=== PATIENT | male | born 1955 | race Caucasian/White ===

== ENCOUNTER 2016-08-15 05:11 | Inpatient (IN) | payer OTHER, MEDICARE ==
[2016-08-03 15:15] LABS: HEMATOCRIT 38.6 % (42.0-52.0); HEMOGLOBIN 12.4 gm/dL (14.0-18.0); MCH 25.4 pg (26.0-34.0); MCHC 32.2 g/dL (28.0-37.0); MCV 78.9 fL (80.0-100.0); RBC 4.89 mil/uL (4.50-6.00); RDW 15.5 % (10.5-14.5); WBC 8.4 thou/uL (4.0-11.0)
[2016-08-03 15:27] LABS: CALCIUM 8.7 mg/dL (8.5-10.1); CREATININE 1.3 mg/dL (0.6-1.3); POTASSIUM 4.4 mmol/L (3.5-5.1)
[2016-08-03 15:30] LABS: INR 3.5; PROTIME 36.5 Seconds (9.3-11.4)
[2016-08-04 09:18] LABS: URINE BILIRUBIN NEGATIVE (Negative); URINE BLOOD NEGATIVE (Negative); URINE COLOR YELLOW; URINE GLUCOSE-RANDOM* NEGATIVE (Negative); URINE KETONES NEGATIVE (Negative); URINE LEUKOCYTES-REFLEX NEGATIVE (Negative); URINE PROTEIN (DIPSTICK) NEGATIVE (Negative); URINE UROBILINOGEN 0.2 E.U./dl (0.2-1.0)
[~2016-08-15] VITALS: Ht 175.3 cm; Wt 89.8 kg
[2016-08-15] VITALS (11 sets, daily range): BP systolic 103–173; BP diastolic 66–111
--- NOTE | ~2016-08-15 | O ---
[facility] [place] [address] OPERATIVE REPORT Name: JOSH HARMON Room #: 539-P [facility] IN M.R.#: [id number] Admission: 08/15/16 Attend Phys: Monty Hernández MD Discharge: Date of : 59 Report #: [id number] THIS REPORT FOR: //name// CC: Charlie Hernández DATE OF SERVICE: 08/15/2016 PREOPERATIVE DIAGNOSES: End-stage degenerative arthritis, left knee with some mild flexion contracture and moderate valgus malalignment. POSTOPERATIVE DIAGNOSES: End-stage degenerative arthritis, left knee with some mild flexion contracture and moderate valgus malalignment. PROCEDURE: Left total knee arthroplasty. SURGEON: Monty Hernández MD. INDICATIONS: This 60-year-old gentleman is somewhat frail and has a number of general medical and psychological problems. He is on chronic pain medication. He remains moderately active and independent but is having difficulty given progressive bilateral knee pain. He has moderate valgus malalignment on the left side and mild varus malalignment on the right. Both knees are uncomfortable and demonstrated mild flexion contracture. We have discussed treatment options, and the potential risks as well as benefits given his other comorbidities. He and his family understand well and wished to proceed at this point with left total knee arthroplasty. DESCRIPTION OF PROCEDURE: The patient was taken to the operating room and placed under general anesthesia. A left femoral nerve block was also applied. The left knee and leg were meticulously prepped and draped. An anterior longitudinal skin incision was made and carried through the medial retinaculum. The patella was reflected laterally. Moderate degenerative change in all 3 compartments was noted. The AWID knee system was utilized. Intramedullary guides were used on both the femur and the tibia. The femur was noted to be in moderate valgus position, and this was corrected by placing the distal cut at about 5 degrees of valgus. The femur seemed best suited for a size 4 femoral component. The tibia was cut perpendicular to the long axis of the bone, and also seemed most appropriately sized for a size 4 tibial component. The patellar surface was resected and a size 38 mm patellar button fit nicely, appropriate anchor holes were created. A trial reduction was performed and the knee seemed best suited for a 12.5 mm polyethylene tibial insert, the patella is mildly unstable and needed some support for good tracking. This was improved with a limited lateral retinacular release, I felt positioning of the patellar component and rotation alignment of the femoral and tibial component seemed to be optimal. I felt patellar stabilization with a good closure of the medial [address] [id number] OPERATIVE REPORT Name: JOSH HARMON Room #: 539-P [facility] IN M.R.#: [id number] Admission: 08/15/16 Attend Phys: Monty Hernández MD Discharge: Date of : 59 Report #: [id number] retinaculum would probably be satisfactory. The intramedullary canals were blocked on both the femoral and tibial sides with a bone block. The surfaces were thoroughly irrigated and dried. Methyl methacrylate cement was mixed and injected into the porous surface of the proximal tibia. The DePuy PFC size 4 tibial component was then impacted into position in appropriate alignment and rotation. It seated nicely and appeared to be secure. A size 4 left femoral component was impacted on the distal femur. It also seated nicely and appeared to be secure. A 12.5 mm polyethylene insert was snapped into place. This seated nicely. The size 38 mm patellar button was cemented into place using appropriate anchor holes and secured with a patellar clamp. As the cement hardened, the knee was placed into full extension, and gentle pressure applied. As the tibial cement hardened, once the cement was fully cured, alignment, range of motion, and stability were assessed, and felt to be quite satisfactory. The patella seemed to track nicely and appeared to be reasonably secure. I felt this would do nicely with the addition of a good medial retinacular were repair. The tourniquet was deflated after a total tourniquet time of 44 minutes. The wound was copiously irrigated. Good hemostasis was established. A single Hemovac was left in the wound, exiting through a separate stab incision. The fascia was then closed in a careful and complete fashion using multiple #1 Vicryl sutures. This did result in a very satisfactory stability of the patella, which seemed to track nicely with no further evidence of lateral subluxation. The subcutaneous tissues were then closed with 0 Monocryl. The skin was closed with skin cholo. A sterile dressing was applied. The patient was awakened and returned to the recovery room in good condition. <ELECTRONICALLY SIGNED> By: Monty Hernández MD 08/16/16 0743 [id number] Monty Hernández MD /nt
--- NOTE | ~2016-08-15 | D ---
[facility] [place] [address] [address] DISCHARGE SUMMARY Name: JOSH HARMON Room #: 539-P [facility] IN M.R.#: [id number] Admission: 08/15/16 Attend Phys: Monty Hernández MD Discharge: Date of : 59 Report #: [id number] THIS REPORT FOR: //name// CC: Charlie Hernández DATE OF SERVICE: 08/19/2016 FINAL DIAGNOSES: 1. Severe end-stage degenerative arthritis, left knee. 2. Chronic pain syndrome related to generalized degenerative spondylosis, radiculopathy and chronic pain syndrome. OPERATION AND PROCEDURES: Left total knee arthroplasty. HISTORY OF PRESENT ILLNESS: This frail 60-year-old gentleman has a number of chronic medical problems and severe chronic pain syndrome requiring extensive chronic analgesic medications. He also has progressive degenerative arthritis in both knees. We have elected to go ahead with left total knee arthroplasty. HOSPITAL COURSE: The patient was admitted and taken to the operating room on August 15. He underwent left total knee arthroplasty, which he tolerated nicely. He has made satisfactory progress with postoperative therapy, although with some difficulty given his frail general state and his chronic generalized discomfort. He tolerated a femoral nerve block nicely and also had IV and oral analgesics. Dosing is rather significant given his chronic narcotic regimen, which includes oxycodone in the range of 120-160 mg daily. He was able to resume a regular diet. He made good progress with therapy and seems to be reasonably safe and functionally independent. He seems ready for discharge home on August 19. DISCHARGE MEDICATIONS: Include Dexilant 60 mg daily, Xanax 2 mg at bedtime, Depakote 250 mg 2 tablets twice daily, oxycodone 30 mg q. 6 hours p.r.n. for pain, Lipitor 20 mg daily, Coreg 6.5 mg b.i.d., gabapentin 300 mg daily, Desyrel 150 mg daily and Coumadin 5 mg daily. He will continue a gentle independent exercise program at home and will also begin outpatient therapy early next week. He and his family are advised to call me if there should be any problems or questions. I will plan to see him back in the office next week and then the following week for suture removal. By: [id number] Monty Hernández MD /nt
[~2016-08-15 05:11] MED LIST: ABILIFY10 MG PO; ADULT LOW DOSE81 MG PO; ASPIR 8181 M1 PO; ASPIRIN EC81 M1 PO; BUPROPION XL300 MG PO; CAMPRAL 333 MG333 M1 PO; CARVEDILOL25 MG PO; CATAPRESS3 TP; CELEBREX 200 M200 MG PO; COMPAZINE25 M1 RC; COREG CR20 MG PO; COREG25 MG PO; COUMADIN 2 MG TA2 M1 PO; COUMADIN 5 MG TA5 M1 PO; DEPAKOTE 250MG250 M1 PO; DEPAKOTE 250MG250 MG PO; DEXILANT60 MG PO; DIAZEPAM10 M1 PO; FLONASE 0.05%50 MCG NASAL; LEVAQUIN 500 M500 M2 PO; LIPITOR80 MG PO; LISINOPRIL2.5 MG PO; LOPRESSOR 50 MG50 M1 PO; LOXAPINE5 MG PO; METOCLOPRAMIDE10 MG PO; MORPHINE; MUCINEX600 MG PO; NABUMETONE 750750 M1 PO; NEURONTIN 300300 M1 PO; NORCO 5-325 TA1 EACH PO; NORFLEX100 MG PO; ONDANSETRON HCL4 M2 PO; OXYCODONE HCL15 MG PO; OXYCODONE HCL30 MG PO; OXYCODONE HCL5 M1 PO; PANTOPRAZOLE SO40 MG PO; PREDNISONE 10 M10 M1 PO; PROTONIX40 M2 PO; REGLAN 10 MG TA10 MG PO; SENOKOT-S1 TA1 PO; SEROQUEL XR 30300 MG PO; SEROQUEL XR50 MG PO; SEROQUEL200 MG PO; SUBOXONE 8 MG-1 EAC3 SL; TOPROL XL25 MG PO; TRANSDERM-SCOP1 EACH TD; TRAZODONE 150150 M1 PO; TRAZODONE HCL100 MG PO; UNICOMPLEX M TA1 TA1 PO; VALIUM10 MG PO; VALIUM5 MG PO; VITAMIN D350000 UNIT PO; XANAX 0.5 MG0.5 MG PO; XANAX1 MG PO; ZOFRAN ODT4 MG PO; ZOLOFT100 MG PO; ZYRTEC10 M2 PO
[2016-08-15 07:51] LABS: INR 1.1; PROTIME 10.9 Seconds (9.3-11.4)
[2016-08-15] MEDS ORDERED: LIPITOR 20 MG T20 M1 PO (07:55)
[2016-08-15] MEDS ORDERED: COREG6.25 MG PO (07:56)
[2016-08-15] MEDS ORDERED: ZYRTEC10 M5 PO (07:58)
[2016-08-15] MEDS ORDERED: NEURONTIN 300300 M1 PO (07:59)
[2016-08-15] MEDS ORDERED: VITAMIN D1000 UNI1 PO (07:59)
[2016-08-15] MEDS ORDERED: SENOKOT-S1 TA1 PO (08:00)
[2016-08-15] MEDS ORDERED: TRAZODONE 150150 M1 PO (08:01)
[2016-08-15] MEDS ORDERED: COUMADIN 5 MG TA5 M1 PO (08:02)
[2016-08-16 03:21] VITALS: BP 109/70
[2016-08-16 05:59] LABS: HEMATOCRIT 32.3 % (42.0-52.0); HEMOGLOBIN 10.5 gm/dL (14.0-18.0); MCH 25.6 pg (26.0-34.0); MCHC 32.5 g/dL (28.0-37.0); MCV 78.9 fL (80.0-100.0); RBC 4.1 mil/uL (4.50-6.00); RDW 16.2 % (10.5-14.5); WBC 10.6 thou/uL (4.0-11.0)
[2016-08-16 08:00] VITALS: BP 133/81
[2016-08-16 20:00] VITALS: BP 123/92
[2016-08-17] VITALS: BP 112/80
[2016-08-17 02:00] VITALS: BP 114/74
[2016-08-17 05:33] LABS: HEMATOCRIT 29.4 % (42.0-52.0); HEMOGLOBIN 9.5 gm/dL (14.0-18.0); MCH 25.6 pg (26.0-34.0); MCHC 32.5 g/dL (28.0-37.0); MCV 78.9 fL (80.0-100.0); RBC 3.72 mil/uL (4.50-6.00); RDW 16.3 % (10.5-14.5); WBC 7.4 thou/uL (4.0-11.0)
[2016-08-17 06:25] LABS: PROTIME 18.1 Seconds (9.3-11.4)
[2016-08-17 06:26] LABS: INR 1.7
[2016-08-17 07:42] VITALS: BP 96/67
[2016-08-17 16:24] VITALS: BP 92/70
[2016-08-17 20:00] VITALS: BP 100/69
[2016-08-18 04:00] VITALS: BP 97/72
[2016-08-18 07:09] LABS: HEMATOCRIT 27.4 % (42.0-52.0); HEMOGLOBIN 9.2 gm/dL (14.0-18.0); MCH 26.1 pg (26.0-34.0); MCHC 33.4 g/dL (28.0-37.0); MCV 78.1 fL (80.0-100.0); RBC 3.51 mil/uL (4.50-6.00); RDW 16.8 % (10.5-14.5); WBC 6.3 thou/uL (4.0-11.0)
[2016-08-18 07:28] LABS: INR 2.1; PROTIME 22.1 Seconds (9.3-11.4)
[2016-08-18 07:49] VITALS: BP 97/62
[2016-08-18 09:28] VITALS: BP 95/69
[2016-08-18 12:42] VITALS: BP 102/65
[2016-08-18 15:16] VITALS: BP 130/71
[2016-08-18 20:26] VITALS: BP 95/62
[2016-08-19 03:59] VITALS: BP 102/74
[2016-08-19 08:10] VITALS: BP 112/75
[2016-08-19 11:31] VITALS: BP 112/75
== END 2016-08-19 12:20 | disposition home or self-care (01) | DRG 470 ==
LOC: TBA 05:11 → 5S 05:11 → PRE 11:17 → 5S 08-19 12:20
PROVIDERS: Orthopaedic Surgery
PROC: 0SRD0J9 Replacement of Left Knee Joint with Synthetic Substitute, Cemented, Open Approach (ICD-10-PCS; principal; 2016-08-15)
DX: M17.12 Unilateral primary osteoarthritis, left knee (principal); I42.9 Cardiomyopathy, unspecified; G89.4 Chronic pain syndrome; M47.899 Other spondylosis, site unspecified; M54.10 Radiculopathy, site unspecified; K59.00 Constipation, unspecified; K08.409 Partial loss of teeth, unspecified cause, unspecified class; F31.9 Bipolar disorder, unspecified; I48.91 Unspecified atrial fibrillation; M21.062 Valgus deformity, not elsewhere classified, left knee; I10 Essential (primary) hypertension; F41.9 Anxiety disorder, unspecified; F10.10 Alcohol abuse, uncomplicated; Z86.711 Personal history of pulmonary embolism; Z95.2 Presence of prosthetic heart valve; Z86.73 Personal history of transient ischemic attack (TIA), and cerebral infarction without residual deficits; K22.70 Barrett's esophagus without dysplasia
CPT/HCPCS: 10785; 50010; 50101; 50415; 50612; 50954; 51130; 51225; 51412; 51771; 53000; 53363; 56525; 62110; 62900; 70005

== ENCOUNTER 2016-09-17 13:45 | Emergency (ER) | payer OTHER, MEDICARE ==
[~2016-09-17] VITALS: Ht 175.3 cm; Wt 88.5 kg
[~2016-09-17 13:45] MED LIST changes: +COREG6.25 MG PO; +LIPITOR 20 MG T20 M1 PO; +VITAMIN D1000 UNI1 PO; +ZYRTEC10 M5 PO
[2016-09-17 15:08] LABS: PROTIME 10.7 Seconds (9.3-11.4)
[2016-09-17 16:26] LABS: EOSINOPHILS 5.4 % (0.0-3.0); HEMOGLOBIN 10.5 gm/dL (14.0-18.0); LYMPHOCYTES 20.3 % (24.0-44.0); MCH 24.3 pg (26.0-34.0); MCHC 31.9 g/dL (28.0-37.0); MCV 76.1 fL (80.0-100.0); MONOCYTES 9.4 % (1.0-8.0); PLATELET COUNT 233 thou/uL (150-400); POLYS 63.9 % (36.0-66.0); RBC 4.34 mil/uL (4.50-6.00); RDW 17.8 % (10.5-14.5); WBC 6.3 thou/uL (4.0-11.0)
[2016-09-17 16:27] LABS: MANUAL DIFF NO
[2016-09-17 16:29] LABS: CALCIUM 8.5 mg/dL (8.5-10.1); CREATININE 1.2 mg/dL (0.7-1.3)
[2016-09-17] MEDS ORDERED: SENOKOT-S1 TA1 PO (16:29)
[2016-09-17] MEDS ORDERED: NORCO 7.5-3251 EACH PO (16:36)
[2016-09-17 17:58] VITALS: BP 142/94
== END 2016-09-17 17:30 | disposition home or self-care (01) ==
LOC: ER 13:45
PROVIDERS: Physician Assistant
DX: M25.462 Effusion, left knee (principal); I10 Essential (primary) hypertension; I48.91 Unspecified atrial fibrillation; I50.9 Heart failure, unspecified; G89.29 Other chronic pain; K21.9 Gastro-esophageal reflux disease without esophagitis; E78.5 Hyperlipidemia, unspecified; F31.9 Bipolar disorder, unspecified; I42.9 Cardiomyopathy, unspecified; Z86.73 Personal history of transient ischemic attack (TIA), and cerebral infarction without residual deficits; J30.2 Other seasonal allergic rhinitis; M19.90 Unspecified osteoarthritis, unspecified site; W18.30XA Fall on same level, unspecified, initial encounter; Y93.89 Activity, other specified; Y92.002 Bathroom of unspecified non-institutional (private) residence as the place of occurrence of the external cause; Y99.9 Unspecified external cause status

== ENCOUNTER → 2017-06-19 | Outpatient (CLI) | payer OTHER, MEDICARE ==
[~2017-06-19] MED LIST changes: +NORCO 7.5-3251 EACH PO
== END ==
LOC: MRI 08:37
DX: M54.16 Radiculopathy, lumbar region (principal); M51.36 Other intervertebral disc degeneration, lumbar region; M43.16 Spondylolisthesis, lumbar region; M41.86 Other forms of scoliosis, lumbar region; M46.86 Other specified inflammatory spondylopathies, lumbar region; I10 Essential (primary) hypertension; E78.5 Hyperlipidemia, unspecified